=== PATIENT | female | born 1965 | race Caucasian/White ===

== ENCOUNTER 2019-05-03 20:33 | Inpatient (IN) ==
[2019-05-03] MEDS ORDERED: ZOFRAN IV PRN (22:35)
[2019-05-03] MEDS ORDERED: SOLU-MEDROL IV ONE (22:39)
[2019-05-03] MEDS: FLAGYL 500 MG/NS 500 MG/100 ML IVPB IV SCH (23:26)
[2019-05-03] MEDS: NS 1,000 ML IV SCH (23:26)
[2019-05-03] MEDS: DUONEB (A & A) INH SCH (23:50)
[2019-05-04] MEDS: PEPCID IV SCH ×2 (00:12→10:46)
[2019-05-04] MEDS: SODIUM CHLORIDE 0.9% INJ SCH ×2 (00:14→10:51)
[2019-05-04] MEDS: CIPRO 400 MG/D5W 400 MG/200 ML IVPB IV SCH ×2 (00:39→14:33)
--- NOTE | 2019-05-04 00:46 | HISTORY AND PHYSICAL ---
CHIEF COMPLAINT: Abdominal pain. HISTORY OF PRESENT ILLNESS: This is a 53-year-old female who originally went to [facility]. They called her cumulative effects analyst, Dr. Perez, who wanted her transferred to [facility]. She has been having 3-4 days of sharp abdominal pain, diarrhea and chills. She has a history of Crohn's and chronically has diarrhea. Laboratory data was grossly normal when checked at [place]. She will be admitted for further evaluation and treatment. PAST MEDICAL HISTORY: Significant for COPD. Patient continues to smoke. Crohn's disease, GERD, seizure disorder and hemorrhoids. PREVIOUS SURGICAL HISTORY: Cholecystectomy, appendectomy, partial colectomy, brain surgery for seizures. FAMILY HISTORY: Grandfather had colon cancer. Mother has throat cancer with breast cancer. SOCIAL HISTORY: One pack per day smoker, has been for 25 years. No history of alcohol or illicit drugs. ALLERGIES: Depakote. HOME MEDICATIONS: Patient does not have a list of medications with her. An order was placed for Nursing to reconcile medications with the pharmacy and place in the computer. These can be restarted when appropriate. REVIEW OF SYSTEMS: Fourteen-point review of systems conducted with the patient. Pertinent positives listed above in the HPI. All other systems reviewed and found to be negative. PHYSICAL EXAMINATION: VITAL SIGNS: Temperature 97.8, pulse 67, blood pressure 119/57, oxygen saturation 93% on room air. GENERAL: A 53-year-old female somewhat lethargic secondary to pain medication. She is oriented times 3, is in no acute distress. HEENT: Head is atraumatic, normocephalic. Pupils equal, round, reactive to light. Extraocular eye movement is intact. Sclerae are nonicteric. Conjunctiva is pink. Oral mucosa is dry. NECK: Supple. Decreased skin turgor. No JVD. No thyromegaly. Trachea is midline. No cervical lymphadenopathy. CARDIAC: S1, S2 appreciated. No murmurs, gallops, rubs. LUNGS: Inspiratory wheeze. No rhonchi. No rales. Symmetrical rise and fall with respirations. ABDOMEN: Soft, slightly distended, diffusely tender to palpation. Tympanitic to percussion. Bowel sounds decreased all 4 quadrants. No pulsatile mass. No organomegaly. EXTREMITIES: No clubbing, cyanosis or edema. Two-plus pedal pulses. GENITOURINARY: No bladder distention. Patient voids. Otherwise deferred. NEUROLOGICAL: Alert and oriented times 3. However, she is slightly lethargic secondary to pain medication. No focal motor deficits. Otherwise nonfocal examination. DIAGNOSTIC DATA: CT of the abdomen and pelvis showed focal segmental thickening secondary to inflammatory changes, dilation of adjacent small bowel involving the terminal ileum, ileus versus developing obstruction. LABORATORY DATA: WBC 12,000. Hemoglobin 13. Hematocrit 38. Platelet count 223. Sodium 135. Potassium 3.9. Chloride 105. Carbon dioxide 17. BUN 6. Creatinine 0.6. Lipase 32. Liver function tests within normal limits. ASSESSMENT AND PLAN: 1. Crohn's flare. Consult Dr. Perez. We will give morphine as needed for pain. Start Cipro and Flagyl, 20 mg IV of Solu-Medrol 1 time dose. 2. Fluid volume depletion. Normal saline 75 mL an hour. Patient will be NPO overnight. 3. Ileus versus developing obstruction. As noted, NPO with pain medications, fluid hydration and consult GI. 4. Chronic obstructive pulmonary disease. We will add DuoNebs to patient's profile. Check a chest x-ray tomorrow morning. 5. Gastroesophageal reflux disease. We will start famotidine 20 mg q.12 hours IV. Further recommendations per patient clinical course. Dictated by SHAHRZAD Noriega for Rhea Gupta MD cc: SHAHRZAD Noriega MD Bhavna Gowda, MD Manish Arora, MD Above exam was done by me at bedside. Pt was started on steroids for induction of remission. May benefit from salicylates or even at a later date biologics if necessary. MTDD
[2019-05-04] MEDS: MORPHINE IV PRN ×3 (02:52→21:58)
[2019-05-04] MEDS: DUONEB (A & A) INH SCH ×4 (03:42→21:15)
[2019-05-04] MEDS: FLAGYL 500 MG/NS 500 MG/100 ML IVPB IV SCH (03:46)
[2019-05-04 06:01] LABS: BASO# 0.01 X1000 (0.0-0.2); BASO% 0.2 % (0.0-0.8); EOS# 0.03 X1000 (0.0-0.7); EOS% 0.5 % (0.0-10.0); HEMATOCRIT 39.9 % (37.0-47.0); HEMOGLOBIN 13.6 g/dL (12.0-16.0); IMM GRAN# 0.02 X1000 (0.0-0.04); IMM GRAN% 0.3 % (0.0-0.5); LYMPH# 0.69 X1000 (1.2-3.4); LYMPH% 10.8 % (20.5-51.1); MCH 30.2 PG (27-31); MCHC 34.1 g/dL (33-37); MCV 88.7 FL (81-99); MONO# 0.45 X1000 (0.11-0.59); MPV 10.7 FL (7.4-10.4); NEUT# 5.21 X1000 (1.4-6.5); NEUT% 81.2 % (42.2-75.2); PLT 286 X1000 (130-400); RDW 12.4 % (11.5-14.5); WBC 6.41 X1000 (4.8-10.8)
[2019-05-04 06:45] LABS: AGAP 12; BUN 7 mg/dL (8-22); CALCIUM 8.6 mg/dL (8.8-10.2); CHLORIDE 107 mmol/L (98-107); COSMO 282; CREATININE 0.7 mg/dL (0.5-0.9); ESTIMATED GFR > 60; GLUCOSE 140 mg/dL (70-104); POTASSIUM 4.5 mmol/L (3.5-5.1); SODIUM 141 mmol/L (136-145); TCO2 22 mmol/L (25-35)
--- NOTE | 2019-05-04 07:02 | Diag Imaging Result Doc PS360 ---
EXAM: CHEST-PORTABLE 05/04/2019 HISTORY: copd TECHNIQUE: AP portable at 0550 COMMENT: The inspiration is less optimal than on 10/03/2016. There is an NG tube which passes into the stomach. Considering differences in technique there has been no appreciable change since the previous study. IMPRESSION: No acute disease. Electronically signed by Arben Man 05/04/2019 7:00 AM
--- NOTE | 2019-05-04 09:55 | Diag Imaging Result Doc PS360 ---
KUB ABDOMEN - 05/04/2019 INDICATION: evaluate for constipation or obstruction COMPARISON: 10/03/2016 FINDINGS: There is a nonobstructive bowel gas pattern. No free air or abdominal calcifications. There is no constipation. There are apparent surgical suture lines in the right lower quadrant. There is a nasogastric tube in the stomach. IMPRESSION: No acute disease. Electronically signed by Tono Bryant 05/04/2019 9:53 AM
[2019-05-04] MEDS: SOLU-MEDROL IV SCH ×2 (10:51→22:29)
[2019-05-04] MEDS: ENTOCORT EC PO SCH (11:29)
--- NOTE | 2019-05-04 12:27 | PROGRESS NOTE ---
DATE: 05/04/2019 SUBJECTIVE: Patient reports still having some abdominal pain, but she is not feeling nauseated. She does not have any appetite. OBJECTIVE: Vital Signs: Temperature 98.2 degrees, heart rate 56, respiratory rate 16, blood pressure 132/64. O2 saturation 95% on room air. General: This is a chronically ill-appearing 53- year-old female lying in bed in no acute distress. Cardiovascular: S1, S2 heard. No murmurs, gallops, or rubs. Regular rate and rhythm. Respiratory: Clear bilaterally to auscultation. No work of breathing or using accessory muscles. Abdomen: Distended with diffuse tenderness to palpation. NG tube in place. The NG tube is clamped right now. Extremities: No clubbing, cyanosis, or edema. Peripheral pulses present in both legs. Neurological: The patient alert and oriented x3. Moves all 4 extremities. LABORATORY DATA: Reviewed. DIAGNOSTIC: CT of the abdomen and pelvis showed focal segmental thickening secondary to inflammatory changes. ASSESSMENT AND PLAN: 1. Crohn flare up. Considering the findings in the CT of the abdomen and the abdominal examination, I think surgery needs to be involved. Patient is on NG tube. We see there is a lot of drainage coming out. If not, we may need to consider to remove the NG tube tomorrow. We do see a lot of drainage coming out, then she may need to have surgery depending upon what Dr. Sousa thinks. In any case, we will monitor this patient closely. 2. Fluid volume depletion. We will continue with IV fluids. 3. COPD. Patient is on DuoNeb p.r.n. 4. Gastroesophageal reflux disease. We will continue with famotidine. 5. Disposition: We will continue to monitor this patient closely. cc: Ganga Mesa MD [facility]
[2019-05-04] MEDS ORDERED: FLAGYL 500 MG/NS 500 MG/100 ML IVPB IV SCH (13:00)
--- NOTE | 2019-05-04 14:41 | GASTROENTEROLOGY CONSULTATION ---
DATE: 05/04/2019 ATTENDING PHYSICIAN: Dr. Rowe. REASON FOR CONSULTATION: Crohn's disease and partial small bowel obstruction. HISTORY OF PRESENT ILLNESS: Ms. Barney is a 53-year-old female who was admitted on 05/03/2019 to [facility] ER for worsening abdominal pain, nausea, 1 episode of vomiting, diarrhea, and chills. She was transferred to [facility] for ongoing abdominal discomfort, nausea, vomiting, diarrhea, and chills. She denies any vomiting or passing blood in the stools. She does complain of abdominal distention. She did have a CT scan at the outside facility where she was noted to have focal segmental thickening in the small bowel secondary to inflammatory changes and dilation of adjacent small bowel involving terminal ileum, suggesting ileus versus developing obstruction. The patient does have a history of Crohn's disease since 2008. She has had a history of bowel resection in 2008. She denies any recent sick contacts. Her last EGD and colonoscopy was 02/10/2019 which showed evidence of slightly irregular Z-line, 2 cm hiatal hernia, and gastritis in the stomach, and a small ulcer in the duodenal bulb. She also was noted to have moderately severe Crohn's colitis in the terminal ileum. The mucosa appeared erosive, erythematous, and ulcerated. Biopsies were taken. There was evidence of segmental stenosis in the terminal ileum. There was evidence of stool in the colon and some internal hemorrhoids. She was on Lialda 2.4 g every day, vitamin D 2000 units every day, and budesonide 9 mg every day for 3 months. She was also on omeprazole 40 mg daily for 90 days. Despite this, she developed worsening abdominal pain, nausea, vomiting, diarrhea, and chills, likely suggesting Crohn's flare versus developing obstruction. PAST MEDICAL HISTORY: Crohn's disease, GERD, duodenal ulcer, hiatal hernia, terminal ileal stricture, smoker, COPD, seizure disorder, hemorrhoids. PAST SURGERIES: Cholecystectomy, appendectomy, partial colectomy in 2008, brain surgery for seizures. FAMILY HISTORY: Grandfather had colon cancer. Mother had throat cancer and breast cancer. SOCIAL HISTORY: She smokes 1 pack a day. She has been smoking for last 25 years. No history of alcohol or illicit drug abuse. ALLERGIES: Depakote. MEDICATIONS IN THE HOSPITAL: Include morphine, albuterol/ipratropium, budesonide 9 mg once daily, ciprofloxacin 400 mg IV q.12 hours, Pepcid 20 mg IV q.12 hours, Flagyl 500 mg IV q.6 hours (we will change it to q.8), normal saline at 70 mL per hour, and Solu-Medrol started on 60 mg IV q.12 hours, Zofran 4 mg IV every 4 hours. DIET: The patient is currently NPO. REVIEW OF SYSTEMS: Denies any current fevers or rigors. She complained of some chills. She denies any nausea at the moment but at home, she did have nausea, 1 episode of vomiting at [facility] ER and abdominal pain, and diarrhea. She denies any chest pain, shortness of breath, dyspnea at rest. Denies any vomiting blood, passing blood in the stools. Denies any new neurologic complaints. PHYSICAL EXAMINATION: Vital Signs: Temperature 98.2 degrees, pulse rate 56, respiratory rate of 22, blood pressure 132/64, saturating 94% on room air. Body weight of 160 pounds and 0.3 ounces, BMI 26.6 kg/m2. General Appearance: Moderately built, moderately nourished, lying in bed, in no acute distress. HEENT: No pallor. No icterus. Pupils equal, reactive to light. Neck: Supple. Abdomen: Distended. Discomfort in the periumbilical region. No rebound or guarding. Extremities: No cyanosis, clubbing. Neurologic: Alert, awake, oriented x3. LABS: Hemoglobin and hematocrit are 13.2 and 39.9, white count 6.4, platelet count of 286,000. Sodium of 141, potassium 4.5, chloride 107, bicarb of 22, anion gap 12, BUN of 7, creatinine 0.7, glucose of 140, calcium is 8.6. CRP is 9.39. Chest x-ray showed no acute disease. IMPRESSION AND PLAN: 1. Crohn's disease, likely causing partial small obstruction causing Nausea and vomiting. Her CRP is elevated. 2. History of known terminal ileal stricture and terminal ileitis, the colonoscopy on 02/10/2019. 3. Reflux disease. 4. Chronic smoker. 5. History of duodenal ulcer and sliding hiatal hernia, 2 cm. RECOMMENDATIONS: 1. We will continue NPO status. We will continue IV antibiotics of Cipro and Flagyl. We will start her on Entocort 9 mg once daily. We will give her Solu-Medrol 60 mg IV q.12 hours and we will continue IV fluids. We will keep her on IV antiemetics for nausea. She will continue on NG tube and intermittent suction. We will also place a consult for general surgery as the patient has a history of terminal ileal stricture which is likely causing patient's symptoms. The patient was also counseled quit smoking. Patient will continue on GI prophylaxis with Pepcid twice daily. I have spoken with Dr Sousa. 2. She is on IV morphine for pain control. She is on albuterol/ipratropium for COPD. 3. The above plans were discussed with the patient. All questions were answered. Please call us with any further questions. cc: MD Feliberto Werner MD MTDD
--- NOTE | 2019-05-04 14:53 | CONSULTATION ---
DATE OF CONSULTATION: 05/04/2019 HISTORY OF PRESENT ILLNESS: Ms. Olga Barney is a 53-year-old, white female who has a history of Crohn's disease. She has had a resection by Dr. Andrews approximately 7 years ago. It was an distal ilium resection and this was an open procedure. She has been treated with Crohn's medication since that time but she has developed a recurrent stricture of the distal ilium. She recently underwent colonoscopy per Dr. Perez which showed this stricture. She was admitted with a 3-day history of abdominal cramping and x-ray suggesting a partial small-bowel obstruction. She is being treated with IV steroids and antibiotics, and we were asked to evaluate her. PAST MEDICAL HISTORY: COPD. She continues to smoke despite her Crohn's disease. She has gastroesophageal reflux disease, seizure disorder, and hemorrhoids. PREVIOUS SURGICAL HISTORY: Cholecystectomy, appendectomy, partial colectomy, brain surgery for seizures. FAMILY HISTORY: Colon cancer in a grandfather. Mother had throat cancer and breast cancer. SOCIAL HISTORY: She is 1 pack a day smoker for the last 25 years. ALLERGIES: Depakote. MEDICATIONS: Crohn's medications. REVIEW OF SYSTEMS: A 14 point review of systems was performed and was essentially negative except for the history of present illness. PHYSICAL EXAMINATION: On exam, Ms. Olga Barney is a middle-aged, white female, slim. She has an NG tube in place. She is awake, cooperative. No jaundice. No oral lesions. No cervical or supraclavicular lymphadenopathy. Her heart has a regular rate. Lungs are clear to auscultation and percussion bilaterally. She has no shortness of breath. Her abdomen was protuberant but not tightly distended. It did not appear to be tender on palpation. She had no costovertebral tenderness. Rectal and vaginal exams were not performed. She does have palpable peripheral pulses. No peripheral edema. Neurologically, she is alert and oriented x3, and appropriate. LABORATORY DATA: Electrolytes are within normal limits. White blood cell count is normal, hematocrit is 40%. Plain film suggests partial small bowel obstruction. INTERPRETATION: Recurrent Crohn's stricture, distal ilium. PLAN: She has been admitted. She has an NG tube in place, receiving IV antibiotics and steroids. We will follow her clinically. cc: Maru Sousa MD
[2019-05-05] MEDS: NS 1,000 ML IV SCH ×2 (00:37→08:22)
[2019-05-05] MEDS: FLAGYL 500 MG/NS 500 MG/100 ML IVPB IV SCH ×3 (00:37→12:22)
[2019-05-05] MEDS: SODIUM CHLORIDE 0.9% INJ SCH ×2 (00:37→12:23)
[2019-05-05] MEDS: PEPCID IV SCH ×2 (00:38→12:23)
[2019-05-05] MEDS: DUONEB (A & A) INH SCH ×4 (03:20→21:09)
[2019-05-05] MEDS ORDERED: CHLORASEPTIC SPRAY MT PRN (05:15)
[2019-05-05 05:44] LABS: BASO# 0.01 X1000 (0.0-0.2); BASO% 0.1 % (0.0-0.8); EOS# 0.02 X1000 (0.0-0.7); EOS% 0.3 % (0.0-10.0); HEMATOCRIT 36.6 % (37.0-47.0); HEMOGLOBIN 12.4 g/dL (12.0-16.0); IMM GRAN# 0.03 X1000 (0.0-0.04); IMM GRAN% 0.4 % (0.0-0.5); LYMPH# 0.89 X1000 (1.2-3.4); LYMPH% 11.7 % (20.5-51.1); MCHC 33.9 g/dL (33-37); MCV 88.4 FL (81-99); MONO# 0.13 X1000 (0.11-0.59); MONO% 1.7 % (1.7-9.3); MPV 10.1 FL (7.4-10.4); NEUT% 85.8 % (42.2-75.2); PLT 330 X1000 (130-400); RBC 4.14 XMIL (4.2-5.4); RDW 12.3 % (11.5-14.5); WBC 7.58 X1000 (4.8-10.8)
[2019-05-05] MEDS: CIPRO 400 MG/D5W 400 MG/200 ML IVPB IV SCH ×2 (06:00→21:00)
[2019-05-05 06:01] LABS: AGAP 9; BUN 5 mg/dL (8-22); CALCIUM 9.4 mg/dL (8.8-10.2); CHLORIDE 106 mmol/L (98-107); COSMO 280; CREATININE 0.7 mg/dL (0.5-0.9); ESTIMATED GFR > 60; GLUCOSE 131 mg/dL (70-104); POTASSIUM 3.5 mmol/L (3.5-5.1); SODIUM 141 mmol/L (136-145); TCO2 26 mmol/L (25-35)
[2019-05-05 06:45] LABS: BANDS 6 % (0-1); LYMPHS 8 % (21-51); SEGS 86 % (42-75)
--- NOTE | 2019-05-05 11:22 | PROGRESS NOTE ---
DATE: 05/05/2019 SUBJECTIVE: The patient reports abdominal pain is definitely better as well as abdominal distention. She is not feeling nauseated. Apparently she had one-half can yesterday of gastric secretions. OBJECTIVE: Vital signs: Temperature is 98.7, heart rate 59, respiratory rate 16, blood pressure 137/61, O2 saturation 95% on room air. General: This is a 53-year-old female lying in bed, in no acute distress. Cardiovascular: S1 and S2 heard. No murmurs, gallops or rubs. Regular rate and rhythm. Respiratory: Clear bilaterally to auscultation. No work of breathing or using accessory muscles. Abdomen: Soft. Definitely less distended. Definitely less diffuse tenderness to palpation. NG tube in place with bilious secretion. NG tube is connected to suction. Extremities: No cyanosis, clubbing or edema. Peripheral pulses present in both legs. Neurologic: The patient is alert and oriented x3, moves all 4 extremities. DIAGNOSTIC DATA: Reviewed. ASSESSMENT AND PLAN: 1. Crohn's disease flare up. The patient continues to be on ciprofloxacin and metronidazole IV. The patient is also on IV steroids and also oral steroids as per GI recommendations. Clinically, this patient is having less abdominal pain, less abdominal distention. I think clinically she is improving. I think we will order abdominal x-ray tomorrow and see how she does. Also, Dr. Sousa from General Surgery has been consulted. We will follow recommendations. 2. Fluid volume depletion with IV fluids, in this case normal saline. 3. Chronic obstructive pulmonary disease. The patient is on DuoNeb p.r.n., not in any exacerbation. 4. Gastroesophageal reflux disease. We will continue with famotidine. DISPOSITION: We will continue to monitor this patient closely. We will see what GI and Surgery have to say tomorrow. cc: Ganga Mesa MD MTDTete
--- NOTE | 2019-05-05 11:42 | PROGRESS NOTE ---
DATE: 05/05/2019 INDICATIONS: Ms. Olga Barney is a 53-year-old white female who is a patient of Dr. Perez, who has Crohn disease. She has had a resection in the past by Dr. Andrews through a midline incision, and this was a distal ilium and cecal resection. She has chronic stricture in the distal ilium again. She was admitted with abdominal cramping, which is now resolved with IV steroids. I have removed her NG tube. We will start her on clear liquids and see how she does. She will probably need an elective resection of her distal ilium to prevent rehospitalization. cc: Maru Sousa MD
[2019-05-05] MEDS: SOLU-MEDROL IV SCH ×2 (12:20→21:00)
[2019-05-05] MEDS: ENTOCORT EC PO SCH (12:22)
--- NOTE | 2019-05-05 23:23 | PROVIDER PROGRESS NOTE ---
Progress Note S: No acute overnight events. No N/V/F, SOB, CP. Abdominal pain improving. +bowel movements without rectal bleeding. Patient requesting NGT removal. O: Last Vital Signs Temp 98.0 F 05/06/19 03:58 Pulse 55 L 05/06/19 03:58 Resp 16 05/06/19 03:58 BP 114/50 05/06/19 03:58 Pulse Ox 95 05/06/19 03:58 Height 5 ft 5 in Weight 160 lb 0.3 oz GEN: awake, alert, NAD HEENT: anicteric, MMM, EOMI NECK: supple, no JVD PULM: CTAB CV: RRR, no murmurs ABD: soft, ND, TTP RLQ, BS, no rebound or guarding EXT: no cce NEURO: nonfocal LABS: 05/05/19 05/05/19 05:05 05:05 WBC 7.58 Hgb 12.4 Plt Count 330 Segmented Neutrophils 86 H Band Neutrophils 6 H Lymphocytes 8 L Sodium 141 Potassium 3.5 D Chloride 106 Carbon Dioxide 26 BUN 5 L Creatinine 0.7 Ms. Olga Barney is a 53 year old woman with history of ileal Crohn's disease (stricture phenotype, diagnosed in 2008) s/p remote ileal resection with [id number] ileocolonic anatomosis and previously treated with Remicade who presents with Crohn's flare with a 3 cm enhancing fluid collection in the right lower quadrant consistent with an abscess, and small foci of extraluminal air consistent with microperforation. She appears to be improving with antibiotics and steroids. Her last colonoscopy on 02/10 showed mild stenosis of the neoterminal ileum with ulceration. Biopsies showed acute non-specific inflammation. She has not been on Remicade, per patient report, for 2 years secondary to inadequate insurance coverage. # Ileal Crohn's disease (stricturing phenotype): - stopped budesonide; continue IV steroids; only one steroid required - low threshold to hold steroids if patient develops SIRS/sepsis - ordered TPMT, hepatitis B serologies, and TB quantiferon; she will ultimately need to start biologic therapy once infection resolves as outpatient - recommend referral to IBD center upon discharge given complicated Crohn's disease # Intra-abdominal abscess: recommend repeat CT A/P in a couple of days to assess for improvement; surgery following, appreciate recs # Stricture of the neoterminal ileum: not complete obstruction; patient is having bowel movements without N/V. Abdomen is soft; NGT removed; continue clear liquids # Tobacco abuse: counseled on smoking cessation Will follow with you. Patient may need transfer to academic center pending clinical course
[2019-05-06] MEDS: NS 1,000 ML IV SCH ×2 (00:04→09:39)
[2019-05-06] MEDS: PEPCID IV SCH ×2 (00:09→15:00)
[2019-05-06] MEDS: SODIUM CHLORIDE 0.9% INJ SCH ×2 (00:09→15:00)
[2019-05-06] MEDS: DUONEB (A & A) INH SCH ×3 (05:32→16:03)
[2019-05-06] MEDS: FLAGYL 500 MG/NS 500 MG/100 ML IVPB IV SCH ×3 (06:00→15:03)
[2019-05-06 06:01] LABS: BASO# 0.01 X1000 (0.0-0.2); BASO% 0.1 % (0.0-0.8); HEMATOCRIT 33.7 % (37.0-47.0); HEMOGLOBIN 11.4 g/dL (12.0-16.0); IMM GRAN# 0.04 X1000 (0.0-0.04); IMM GRAN% 0.3 % (0.0-0.5); LYMPH# 1.06 X1000 (1.2-3.4); LYMPH% 7.9 % (20.5-51.1); MCH 30.2 PG (27-31); MCHC 33.8 g/dL (33-37); MCV 89.2 FL (81-99); MONO# 0.31 X1000 (0.11-0.59); MONO% 2.3 % (1.7-9.3); MPV 10.1 FL (7.4-10.4); NEUT# 12.02 X1000 (1.4-6.5); NEUT% 89.4 % (42.2-75.2); PLT 319 X1000 (130-400); RBC 3.78 XMIL (4.2-5.4); RDW 12.3 % (11.5-14.5); WBC 13.44 X1000 (4.8-10.8)
[2019-05-06 06:58] LABS: AGAP 7; BUN 4 mg/dL (8-22); CHLORIDE 110 mmol/L (98-107); COSMO 283; CREATININE 0.6 mg/dL (0.5-0.9); ESTIMATED GFR > 60; GLUCOSE 123 mg/dL (70-104); POTASSIUM 2.9 mmol/L (3.5-5.1); SODIUM 143 mmol/L (136-145); TCO2 26 mmol/L (25-35)
[2019-05-06] MEDS: CIPRO 400 MG/D5W 400 MG/200 ML IVPB IV SCH (08:00)
[2019-05-06] MEDS: SOLU-MEDROL IV SCH (10:30)
--- NOTE | 2019-05-06 11:41 | Diag Imaging Result Doc PS360 ---
ABDOMEN FLAT/UPRIGHT - 05/06/2019 INDICATION: ileus, abdominal distension COMPARISON: 05/04/2019 FINDINGS: There is a nonobstructive bowel gas pattern. No free air or abdominal calcifications. No constipation. IMPRESSION: Negative exam. Electronically signed by Tono Bryant 05/06/2019 11:38 AM
[2019-05-06] MEDS ORDERED: POTASSIUM CHLORIDE 20 MEQ/SWI 20 MEQ/100 ML IVPB IV SCH (13:00)
--- NOTE | 2019-05-06 13:30 | GENERAL SURGERY PROGRESS NOTE ---
DATE: 05/06/2019 SUBJECTIVE: No vomiting. Having bowel movements. No pain. No fevers. No tachycardia. OBJECTIVE: Abdomen is soft. Incision intact. LABORATORY DATA: I reviewed her labs. White count is up slightly but she has been started on steroids. Potassium was low, is being replaced. Hematocrit is 33. ASSESSMENT AND PLAN: This is a 53-year-old female with Crohn's stricture. She is improving with medical management. Dr. Sousa feels she will need an operation but hopes to do this electively. We will give her a soft diet today and follow her, and if she tolerates it is, it would be reasonable to let her go home if cleared by GI. cc: Fernie Damian MD
[2019-05-06 15:38] VITALS: BP 135/70
[2019-05-06] MEDS ORDERED: KLOR-CON PO ONE (16:56)
--- NOTE | 2019-05-06 19:11 | DISCHARGE SUMMARY ---
ADMISSION DATE: 05/03/2019 DISCHARGE DATE: 05/06/2019 DISCHARGE DIAGNOSIS: Crohn exacerbation. CONSULTATION: Dr. Perez, Gastroenterology, Dr. Sousa, Surgery. PROCEDURES: None . DISCHARGE DIAGNOSIS: As described. This is a 53-year-old female who was seen initially in [place] and was transferred here because she had her primary registered physical therapist was in the [place] area. She had complaints of pain, diarrhea, felt to have a Crohn flare. She was placed on Cipro, Flagyl and Solu-Medrol. Dr. Perez was consulted, kept her on Cipro, Flagyl, continued IV steroids and Entocort and Dr. Sousa was consulted for possible stricture. NG was actually in place but she improved and I think to the point where NG was taken out. CT scan although was not obtained here I think showed an ileal stricture but she improved. She was having normal bowel movements for her. She says she chronically has diarrhea. Pain had resolved and she had a distal ileum and cecal resection. She has a chronic stricture in her distal ileum. She was admitted with abdominal cramping which improved. Her diet was advanced on the and she was very motivated to go home. Her x-ray showed no obstruction. She had no white count. She had no fever. Abdominal pain was okay. She did have a potassium of 2.9. I discussed the case with Dr. Perez and he was okay with her going home. Dr. Damian said if she tolerate her diet she could also go home so she will be discharged on a course of Cipro and Flagyl, a slow prednisone taper. I am not sure if she is on maintenance medications for Crohn's. Nothing is listed in her and she had previously been on Tegretol and multivitamin. Follow up with Dr. Perez in 1 to 2 weeks. We will continue to monitor closely. cc: Jerome Garcia MD
--- NOTE | 2019-05-06 19:36 | GASTROENTEROLOGY PROGRESS NOTE ---
DATE: 05/06/2019 SUBJECTIVE: She is resting in bed. She is feeling better. She denies any nausea or vomiting. She is eating well. She is moving her bowels. She is having liquid brown stools. She denies any fevers, rigors, chills. OBJECTIVE: Temperature 98.8 degrees, pulse of 67, respiratory rate 16, blood pressure 130/70, saturating 94% on room air. Body weight of 160 pounds, 0.3 ounces. BMI 26.6 kg/m2. Generally, the patient is thin, moderately nourished, lying in bed in no acute distress. HEENT: Mild pallor. No icterus. Neck is supple. Abdomen is soft, protuberant. Mild discomfort periumbilical discomfort, No rebound or guarding. Extremities: No cyanosis, clubbing. Neurologic-boyer she is alert, awake, oriented x3. LABORATORY DATA: Hemoglobin and hematocrit are 11.4 and 33.7, white count of 13.44, platelet count of 319,000. Sodium 143, potassium 2.9, chloride 110, bicarbonate 26, anion gap 7, BUN of 4, creatinine of 0.6, glucose 123, calcium 9. CRP 9.39. Her stool studies, ova and parasites negative. Stool for C. difficile toxin is negative. C. difficile antigen is also negative. Her stool for white cells: None seen. Stool culture is negative. DIAGNOSTIC DATA: Abdominal x-ray done today showed nonobstructive bowel gas pattern. No free air. No constipation negative exam. IMPRESSION AND PLAN: 1. Terminal ileal stricture secondary to Crohn disease. She is on intravenous steroids. We will switch her to oral prednisone which she will take 40 mg once daily for 7 days and then come down to 30 mg once daily for 7 days, then 20 mg once daily for 7 days, then 10 mg once daily for 7 days. We will follow up on the thiopurine S-methyltransferase level, hepatitis B serologies and the QuantiFERON level. She may need Humira as an outpatient. 2. Partial small-bowel obstruction secondary to stricture of the terminal ileum. Dr. Sousa is following. She will be following up with Dr. Larry as an outpatient for possible elective stricturoplasty. 3. Tobacco abuse. Patient counseled to quit smoking. 4. History of prior terminal ileal resection with [id number] ileocolonic anastomosis in 2008. She had been previously treated with Remicade. According to the CT scan report at [facility], she had a 3 cm enhancing fluid collection in the right lower quadrant consistent with an abscess, and small foci of extraluminal air consistent with microperforation. She is improving with antibiotics and steroids. She is eating well. She is moving her bowels. She denies any fevers, rigors or chills. Abdominal pain is greatly improved. She is going to go home and she will follow up with Dr. Sousa as outpatient for elective resection of the terminal ileum. 5. She had come off her Remicade about 2 years ago because of inadequate insurance coverage. 6. At home she will continue on Lialda 2.4 g once daily, vitamin D 2000 International Units once daily and budesonide 9 mg once daily. After she finishes oral steroids. She will continue on omeprazole 40 mg daily for reflux disease and hiatal hernia. 7. The patient will call our office and follow up with us in a few weeks after discharge. The above plan was discussed with the patient and all questions were answered. Please call us with any questions. cc: MD Jerome Calzada MD MTDD
[2019-05-07 08:36] LABS: HEPATITIS B SURFACE ANTIGEN SEE COMMENTS
== END 2019-05-06 18:25 | disposition home or self-care (01) | DRG 387 ==
LOC: SUATTDRO 20:33 → DIRADM 20:33 → 4N 22:42
PROVIDERS: ATTEND Internal Medicine

== ENCOUNTER 2019-06-13 05:11 | Inpatient (IN) ==
[2019-06-06 12:23] LABS: BASO# 0.04 X1000 (0.0-0.2); BASO% 0.3 % (0.0-0.8); EOS# 0.07 X1000 (0.0-0.7); EOS% 0.5 % (0.0-10.0); HEMOGLOBIN 14.2 g/dL (12.0-16.0); IMM GRAN% 0.7 % (0.0-0.5); LYMPH# 1.94 X1000 (1.2-3.4); LYMPH% 14.2 % (20.5-51.1); MCHC 33.8 g/dL (33-37); MCV 88.6 FL (81-99); MONO# 0.31 X1000 (0.11-0.59); MONO% 2.3 % (1.7-9.3); MPV 10.3 FL (7.4-10.4); NEUT# 11.17 X1000 (1.4-6.5); PLT 384 X1000 (130-400); RBC 4.74 XMIL (4.2-5.4); RDW 12.5 % (11.5-14.5); WBC 13.63 X1000 (4.8-10.8)
[2019-06-13] MEDS ORDERED: ENTEREG ONE (05:34)
[2019-06-13] MEDS ORDERED: KEFZOL 1 GM/D5W 1 GM/50 ML IVPB ONE (05:35)
[2019-06-13] MEDS ORDERED: LR 1,000 ML ONE (05:35)
[2019-06-13] MEDS ORDERED: SODIUM CHLORIDE 0.9% 10 ML ONE (06:31)
[2019-06-13] MEDS ORDERED: MARCAINE 0.25% PF ONE (06:31)
[2019-06-13] MEDS ORDERED: DIPRIVAN 1% ONE (06:32)
[2019-06-13] MEDS ORDERED: EXPAREL 1.3% ONE (06:32)
[2019-06-13] MEDS ORDERED: XYLOCAINE-MPF 2% ONE (06:32)
[2019-06-13] MEDS ORDERED: VERSED ONE (06:33)
[2019-06-13] MEDS ORDERED: QUELICIN (DOSE) ONE (06:54)
[2019-06-13] MEDS ORDERED: FENTANYL ONE ×2 (06:59→07:30)
[2019-06-13] MEDS ORDERED: ZOFRAN ONE (07:19)
[2019-06-13] MEDS ORDERED: DECADRON ONE (07:19)
[2019-06-13] MEDS ORDERED: TORADOL ONE (07:25)
[2019-06-13] MEDS ORDERED: DILAUDID ONE (07:40)
[2019-06-13] MEDS ORDERED: ALBUMIN 25% ONE (08:34)
[2019-06-13] MEDS ORDERED: NEOSTIGMINE ONE (09:26)
[2019-06-13] MEDS ORDERED: ROBINUL ONE (09:27)
[2019-06-13 10:21] LABS: URINE SOURCE CATH
[2019-06-13] MEDS ORDERED: D5 1/2 NS + KCL 20 MEQ 1,000 ML ONE (10:21)
[2019-06-13 10:27] LABS: BILIRUBIN URINE NEGATIVE (NEGATIVE); BLOOD URINE NEGATIVE (NEGATIVE); COLOR ORANGE; GLUCOSE URINE NEGATIVE (NEGATIVE); KETONE URINE TRACE mg/dL (NEGATIVE); LEUKOCYTES URINE NEGATIVE (NEGATIVE); NITRITE URINE NEGATIVE (NEGATIVE); PROTEIN URINE 200 mg/dL (NEGATIVE); TURBIDITY URINE TURBID (CLEAR); UROBILINOGEN URINE NORMAL (NORMAL)
[2019-06-13 10:54] LABS: UR EPITHELIAL CELLS >10 /HPF (<10); URINE BACTERIA NEGATIVE /HPF; URINE CASTS NONE SEEN; URINE RBC <10 /HPF (<10); URINE WBC <10 /HPF (<10)
[2019-06-13] MEDS: D5 1/2 NS + KCL 20 MEQ 1,000 ML IV SCH (10:59)
[2019-06-13] MEDS: MORPHINE IV PRN ×3 (12:21→21:56)
[2019-06-13] MEDS ORDERED: FLU VACCINE IM ONE (12:38)
--- NOTE | 2019-06-13 14:18 | OPERATIVE NOTE ---
PROCEDURE DATE: 06/13/2019 PREOPERATIVE DIAGNOSES: 1. Crohn's disease. 2. Chronic stricture of distal small bowel. POSTOPERATIVE DIAGNOSES: 1. Crohn's disease. 2. Chronic stricture of distal small bowel. PRINCIPAL PROCEDURE: Resection of distal small bowel and segment of ascending colon. SURGEON: Maru Sousa M.D. FIRER HELPER: Gamaliel Lainez R.N. ANESTHESIA: General, in addition to a TAP block per Anesthesia. ESTIMATED BLOOD LOSS: 150 mL. DRAINS: None. INDICATIONS: Olga Barney is a 53-year-old white female, patient of Dr. Perez, who continues to smoke and has Crohn's disease. She has had a previous resection about 7-1/[address] Dipak Andrews. She had a resection of her distal ilium and cecum. She has also had a cholecystectomy. She has developed a distal small-bowel stricture just proximal to the anastomosis within the ascending colon. She has been hospitalized several times for partial small- bowel obstruction, which has improved with steroids, but her trouble dispatcher feels that this area needs to be resected or she will continue to have symptoms. FINDINGS: She did have fat wrapping and abnormal distal small bowel. About a foot of her bowel proximal to the anastomosis between the small bowel and the ascending colon was thickened with fat wrapping, and had stricture. This was resected with a segment of the ascending colon, and we performed a small bowel to hepatic flexure, ascending colon, end-to-end, double-layer sewn anastomosis. When we opened the specimen, she had scarring involving the wall of the small intestine, and cobblestoning involving the mucosa. The anastomosis was widely patent, but within the small bowel, there was stricture. This was a long stricture. She also had interloop adhesions between the small bowel and the omentum, and we took down all adhesions. It was clear that she has lost a lot of her ilium after these two resections. No other intra-abdominal pathology was noted. DESCRIPTION OF PROCEDURE: The patient was brought to the operating room, placed supine, received general anesthesia, and was intubated. Tony catheter tube was placed. A TAP block was placed per Anesthesia. Her abdomen was prepped and draped within the sterile field. I used an Ioban on the skin, and I made a midline incision involving the previous scar. I cut the scar out using the 10 blade scalpel, and then I transected the soft tissue down to the midline using cautery, and we carefully entered the abdomen. We encountered the greater omentum, and there were not many adhesions where I could enter the abdomen easily, but there were adhesions between the underside of the greater omentum, small bowel, and colon. There were also interloop adhesions as expected with Crohn's, but no gross fistulizing disease. As we lysed adhesions using scissors and the cautery, we identified the distal small bowel that was sick. This was a long segment of small bowel as it went into the ascending colon from previous resection. It was not amenable to any stricturoplasty. We had to resect it. We mobilized the ascending colon by incising the peritoneum laterally, and bringing the remainder of the ascending colon up into our wound. We used a JADEN stapler to come across the ascending colon proximal to the anastomosis, and we used a reload of this JADEN stapler to come across the normal-appearing small bowel. We used the LigaSure and also Margy clamps to come across the thickened mesentery of the distal small bowel and ascending colon, and removed it from the field. I performed an end-small bowel to end-ascending colon double-layered anastomosis. The posterior layer was interrupted 3-0 silk stitches, which were reinforced with an interlocking running 3-0 Vicryl stitch, which was continued as a Kula stitch on the anterior wall, and the Yeyo stitch was reinforced with interrupted 3-0 silk Lembert stitches. There was no tension on our anastomosis, the blood supply was adequate, and the caliber of the anastomosis was good. We took time to thoroughly irrigate out the abdomen. I placed the anastomosis on right side of abdomen. We closed the defect within the mesentery with interrupted 3-0 silk stitches. I made sure that the remainder of the small bowel was not twisted on its mesentery, and laid nicely intra-abdominally. I placed the greater omentum over the surface of the bowel, and then I took time to close this midline incision. I used a running 3-0 Vicryl stitch to reapproximate the peritoneum. I used #1 Maxon stitch to close the fascia. We thoroughly irrigated the subcutaneous tissue, and then closed the skin with a skin clip sticker machine operator. We did not use an NG tube. Plans are for her to go to the recovery room, and then be admitted to the floor. She still has a Tony catheter tube in place. We need to be careful about any further resections because the length of her small bowel is getting to be an issue. cc: Maru Sousa MD
[2019-06-13] MEDS: OFIRMEV 1000 MG/ISOTONIC SOLN 1,000 MG/100 ML BOTTLE IV SCH ×2 (16:08→21:13)
[2019-06-13] MEDS: ZOFRAN IV PRN (18:48)
[2019-06-14] MEDS: D5 1/2 NS + KCL 20 MEQ 1,000 ML IV SCH ×2 (02:02→17:30)
[2019-06-14] MEDS: OFIRMEV 1000 MG/ISOTONIC SOLN 1,000 MG/100 ML BOTTLE IV SCH ×2 (02:02→11:30)
[2019-06-14] MEDS: LOVENOX SUBQ SCH (05:45)
[2019-06-14] MEDS: NORCO-10 PO PRN ×4 (05:45→22:44)
[2019-06-14] MEDS: MORPHINE IV PRN ×2 (11:20→15:30)
--- NOTE | 2019-06-14 20:46 | PROGRESS NOTE ---
DATE: 06/14/2019 Ms. Barney is now postop day 1 from a small bowel resection for Crohn's stricture. We have not used an NG tube. She still has her Tony catheter tube in place. She is having some back discomfort, but otherwise I think she is doing well for postop day 1. Her heart rate is 69, blood pressure 152/78, O2 saturation 96%. She is afebrile. She is on no antibiotics. PLAN: Will discontinue her Tony catheter tube tomorrow. We will try to increase her activity today. We will keep her n.p.o. She has had no evidence of bowel activity at this time. She can have some ice chips. Her midline incision is dressed. cc: Maru Sousa MD
[2019-06-15] MEDS: D5 1/2 NS + KCL 20 MEQ 1,000 ML IV SCH ×3 (03:25→18:59)
[2019-06-15] MEDS: LOVENOX SUBQ SCH (06:11)
[2019-06-15] MEDS: NORCO-10 PO PRN ×3 (06:20→18:58)
--- NOTE | 2019-06-15 10:53 | PROGRESS NOTE ---
DATE: 06/15/2019 Ms. Olga Barney is now postoperative day 2 from small bowel and ascending colon resection for a Crohn's stricture. She is ambulating well in the halls. She has had no bowel activity. She has been n.p.o. except ice chips and she wants a cup of coffee. I will start some clear liquids. Overall, I think her postoperative convalescence has been normal. Her heart rate is 82, blood pressure 142/66, O2 saturation 96%. She is afebrile. She is on no antibiotics. Her Tony catheter tube has been discontinued and she has been able to void. Will continue IV fluids for now. cc: Maru Sousa MD
[2019-06-16] MEDS: NORCO-10 PO PRN ×3 (04:00→21:59)
[2019-06-16] MEDS: LOVENOX SUBQ SCH (05:50)
[2019-06-16] MEDS: D5 1/2 NS + KCL 20 MEQ 1,000 ML IV SCH ×2 (05:54→22:00)
--- NOTE | 2019-06-16 14:02 | PROGRESS NOTE ---
DATE: 06/16/2019 SUBJECTIVE: Ms. Olga dial is a 53-year-old white female with Crohn disease and had a chronic distal small bowel stricture, which was long in length and not amenable to stricturoplasty, so I had to resect it. She also underwent lysis of adhesions. She is now postop day 3. She has had no flatus or bowel movement. Her abdomen is slightly distended, but not tightly so. We have given her some clear liquids. She is good about walking around the halls and sitting up. She remains on IV fluids and her incision is dressed. PLAN: We will continue IV fluids and keep her on liquids for now until we know she has bowel activity. Her heart rate is 77, blood pressure 127/64, O2 saturation 92%. She is afebrile. She is on no antibiotics. cc: Maru Sousa MD
[2019-06-17] MEDS: LOVENOX SUBQ SCH (06:03)
[2019-06-17] MEDS: D5 1/2 NS + KCL 20 MEQ 1,000 ML IV SCH ×2 (10:22→23:07)
--- NOTE | 2019-06-17 14:32 | GENERAL SURGERY PROGRESS NOTE ---
DATE: 06/17/2019 SUBJECTIVE: Reports bowel function. No fevers, no tachycardia. Blood pressure 120/60. Abdomen soft, appropriately tender. Dressing is clean. No new labs this morning. ASSESSMENT AND PLAN: This is a 53-year-old female status post right colectomy for small-bowel Crohn stricture. We will advance diet to soft today. I have encouraged to be out of bed ambulating. She is on Lovenox, appropriate IV fluids. Will advance her diet and plan for home in the near future. cc: MD Maru Cabrera MD MTDD
[2019-06-17] MEDS: NORCO-10 PO PRN ×2 (17:17→23:06)
[2019-06-18] MEDS: LOVENOX SUBQ SCH (06:43)
[2019-06-18] MEDS: NORCO-10 PO PRN ×2 (09:54→21:11)
[2019-06-18] MEDS: D5 1/2 NS + KCL 20 MEQ 1,000 ML IV SCH (11:44)
--- NOTE | 2019-06-18 15:09 | GENERAL SURGERY PROGRESS NOTE ---
DATE: 06/18/2019 SUBJECTIVE: Doing well. She continues to have some discomfort, but she is moving bowels. She had some flatus. No fevers. No tachycardia. No vomiting. Abdomen is soft, appropriately tender. Mildly distended. Incisions intact. I reviewed her vital signs. No new labs. ASSESSMENT AND PLAN: A 53-year-old female status post right colectomy for Crohn's stricture. We will continue out of bed and pulmonary toileting and advance her diet as tolerated. cc: MD Maru Cabrera MD
[2019-06-18] MEDS: ZOFRAN IV PRN (15:52)
[2019-06-18] MEDS: TEGRETOL PO SCH (22:00)
[2019-06-19] MEDS: D5 1/2 NS + KCL 20 MEQ 1,000 ML IV SCH ×2 (01:00→13:19)
[2019-06-19] MEDS: LOVENOX SUBQ SCH (05:55)
[2019-06-19] MEDS: TEGRETOL PO SCH ×3 (08:24→18:13)
[2019-06-19 16:08] VITALS: BP 158/78
--- NOTE | 2019-06-20 13:25 | DISCHARGE SUMMARY ---
ADMISSION DATE: 06/13/2019 DISCHARGE DATE: 06/19/2019 ADMITTING DIAGNOSIS: Crohn's stricture, distal small bowel. DISCHARGE DIAGNOSIS: Crohn's stricture, distal small bowel. PRINCIPAL PROCEDURE: Open small bowel and ascending colon resection with primary reanastomosis on 06/13/2019. DISCHARGE DISABILITY: Full. DISCHARGE DIET: Regular. DISCHARGE DISPOSITION: She will return to our outpatient office this coming Wednesday for followup. DISCHARGE MEDICATIONS: She is to return to her home medications. HOSPITAL COURSE: Ms Olga Barney is a 53-year-old white female, Crohn's patient of Dr. Perez who continues to smoke. She has developed a chronic stricture in her distal small bowel and resection was recommended. She has been hospitalized several times with spa partial small-bowel obstructions. She was admitted on the day of surgery and underwent resection of her distal small bowel and part of her ascending colon and we performed an end-to-end small bowel to ascending colon double-layer sewn anastomosis. We felt her surgery went well and after surgery, she went to the recovery room and then was hospitalized on the [address] [place] [address] read. We did not use an NG tube. Initially she had a Tony catheter tube which we removed within 48 hours. It took several days for her to have bowel function and we slowly advanced her diet. We felt safe to discharge her home on postop day 6 under the care of her family with followup in my outpatient office later this week for skin staple removal. On discharge her heart rate was 78 to 92, blood pressure 158/78, O2 saturation 92%. She was afebrile. She has had multiple liquid bowel movements and she is eating 25 to 75% of her meals. We will discharge her home on [place] [address] for pain. She is to return to her home medications. She already has an appointment with Dr. Perez in August 02 for follow up of her Crohn's. She does not have much small bowel left and hopefully she will not need another resection. cc: MD Feliberto Ramirez MD
== END 2019-06-19 18:52 | disposition home or self-care (01) | DRG 331 ==
LOC: SURHOLD 05:11 → 4N 08:17
PROVIDERS: ADMIT Surgery; ATTEND Surgery